=== PATIENT | male | born 1955 | race Caucasian/White ===

== ENCOUNTER 2016-09-06 14:44 | Emergency (ER) | payer MEDICARE ==
[2016-09-06 14:53] VITALS: TEMP 97.3
--- NOTE | 2016-09-06 16:05 | ED ---
General Adult HPI - General Chief complaint: ENT Stated complaint: Throat pain Time Seen by Provider: 09/06/16 15:41 Source: patient, family, RN notes reviewed Mode of arrival: wheelchair Limitations: language barrier, physical limitation - History of Present Illness Initial comments: Is complaining history of present illness this is a 61-year-old male here with his . The patient has a history of throat cancer. He has a device to assist him in speaking PROVOX It gets placed and stays there for 1 year. While cleaning the device he accidentally pulled it out. He has a fresh new one to place. This needs to be done by an ear nose throat specialist. They tried to do it themselves last night starting at 5 PM but was unable to. I contacted Dr. Maki on-call ENT he will see the patient in the emergency room and replace the PROVOX - Related Data Home Medications Medication Instructions Recorded Confirmed Amitriptyline HCl [Elavil] 50 mg PO BID 09/06/16 09/06/16 Buprenorphine HCl/Naloxone HCl 1 film SL QID PRN 09/06/16 09/06/16 [Suboxone 8 mg-2 mg Sl Film] Diazepam [Valium] 10 mg PO TID 09/06/16 09/06/16 Gabapentin [Neurontin] 1,200 mg PO TID 09/06/16 09/06/16 Glimepiride [Amaryl] 4 mg PO DAILY 09/06/16 09/06/16 metFORMIN HCL [Metformin HCl] 1,000 mg PO BID 09/06/16 09/06/16 Allergies Allergy/AdvReac Type Severity Reaction Status Date / Time Iodine and Iodide Containing Allergy Swelling Verified 09/06/16 16:08 Produc Review of Systems ROS Statement: Those systems with pertinent positive or pertinent negative responses have been documented in the HPI. no other complaints at this time other than he accidentally pulled the device out that helps him speak while cleansing the area. his tried to replace the device was unable to. They're sent here for ENT to evaluate and replace the device past medical problems cancer is noted diabetes mellitus,Back surgery orthopedic surgery throat right hip. Family history not respiratory. Patient has ALLERGIES to iodine. ROS Other: All systems not noted in ROS Statement are negative. Past Medical History Past Medical History: Cancer, Diabetes Mellitus Additional Past Medical History / Comment(s): no right hip fence pole 2004accident , wheelchair bound History of Any Multi-Drug Resistant Organisms: None Reported Past Surgical History: Back Surgery, Orthopedic Surgery Additional Past Surgical History / Comment(s): throat, right hip Past Psychological History: No Psychological Hx Reported Smoking Status: Former smoker Past Alcohol Use History: Rare Past Drug Use History: None Reported General Exam - General Exam Comments Initial Comments: vital signs temp 97.3 pulse 98 respiratory rate 16 pulse ox 92 on room air blood pressure 194/105. if on repeat the BP is still elevated the patient will will be given medication to bring it down. patient has tracheostomy hole. And the device in question fits asmall hole in the tracheal ring to allow the patient to speak. It actually got pulled out while he was cleaning the area. He is here for it to be replaced. No other complaints. Limitations: language barrier, physical limitation Course Vital Signs 09/06/16 09/06/16 09/06/16 14:46 16:12 17:00 Temperature 97.3 F L Pulse Rate 98 94 Respiratory 16 18 Rate Blood Pressure 194/105 176/82 150/86 O2 Sat by Pulse 92 L 94 L Oximetry Medical Decision Making - Medical Decision Making Dr. Maki, ENT on-call, came in emergency room and inserted the mechanical voice box. The patient is rated go home. Patient will follow-up with Dr. Mkai Disposition Clinical Impression: Mechanical complication of voice prosthesis Disposition: HOME SELF-CARE Condition: Fair Additional Instructions: follow-up with your family Dr. Carol ROSENTHAL and Dr. Maki Referrals: Rodolfo Barry DO [Primary Care Provider] - 1-2 days Time of Disposition: 17:35
[2016-09-06] MEDS ORDERED: cloNIDine HCL 0.1 MG TAB PO STA (16:16)
[2016-09-06 17:10] VITALS: BP 150/86; PULSE 94; RESP 18
--- NOTE | 2016-09-06 17:44 | P.GSCN ---
History of Present Illness Consult date: 09/06/16 Reason for Consult: TE Prosthesis dislodged and needs replacement Requesting physician: Luis Miguel Foss History of present illness: This is a 61-year-old white male who is status post laryngectomy. 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 This prosthesis has become dislodged and a replacement was attempted by the . After several attempts all last evening they were unable to get this voice prosthesis in place. The emergency room physician was unable to place this voice prosthesis and therefore I was called for insertion of this prosthesis. Review of Systems unablel to obtain as the patient has no voice prosthesis in place and is unable to talk Past Medical History Past Medical History: Cancer, Diabetes Mellitus Additional Past Medical History / Comment(s): no right hip fence pole 2004accident , wheelchair bound History of Any Multi-Drug Resistant Organisms: None Reported Past Surgical History: Back Surgery, Orthopedic Surgery Additional Past Surgical History / Comment(s): throat, right hip Past Psychological History: No Psychological Hx Reported Smoking Status: Former smoker Past Alcohol Use History: Rare Past Drug Use History: None Reported Medications and Allergies Home Medications Medication Instructions Recorded Confirmed Type Amitriptyline HCl [Elavil] 50 mg PO BID 09/06/16 09/06/16 History Buprenorphine HCl/Naloxone HCl 1 film SL QID PRN 09/06/16 09/06/16 History [Suboxone 8 mg-2 mg Sl Film] Diazepam [Valium] 10 mg PO TID 09/06/16 09/06/16 History Gabapentin [Neurontin] 1,200 mg PO TID 09/06/16 09/06/16 History Glimepiride [Amaryl] 4 mg PO DAILY 09/06/16 09/06/16 History metFORMIN HCL [Metformin HCl] 1,000 mg PO BID 09/06/16 09/06/16 History Allergies Allergy/AdvReac Type Severity Reaction Status Date / Time Iodine and Iodide Containing Allergy Swelling Verified 09/06/16 16:08 Produc Surgical - Exam Osteopathic Statement: *. No significant issues noted on an osteopathic structural exam other than those noted in the History and Physical/Consult. Vital Signs Temp Pulse Resp BP Pulse Ox 97.3 F L 98 16 194/105 92 L 09/06/16 14:46 09/06/16 14:46 09/06/16 14:46 09/06/16 14:46 09/06/16 14:46 - General no distress, other (This patient is in a wheelchair status post laryngectomy and neck dissection with a trachea stoma in place.) - Eyes PERRL, normal ocular movement - ENT normal pinna, normal nares - Neck Status post a laryngectomy no masses - Respiratory normal expansion - Integumentary no rash, no growths - Neurologic Wheelchair bound - Musculoskeletal other (In a wheelchair) - Psychiatric oriented to time, oriented to person, other Assessment and Plan Plan: After several attempts at insertion I worked my office and obtained jolting capsules to facilitate the insertion and was able to insert this voice prosthesis. This took over half hour with multiple attempts but the prosthesis was inserted and it was able to talk. Patient tolerated this well. I'm recommending voice prosthesis replaced more frequently than annually which is what they've been doing. This patient is voice prosthesis replacement at least every 3-6 months. They go to the [facility] for their insertion but I told him that I would happy to do the insertion in the office so that I have to travel so far. Time with Patient: Greater than 30
== END 2016-09-06 17:51 | disposition home or self-care (01) ==
LOC: EC 14:44
DX: T85.698A Other mechanical complication of other specified internal prosthetic devices, implants and grafts, initial encounter (principal); E11.9 Type 2 diabetes mellitus without complications; Z91.041 Radiographic dye allergy status; Z87.891 Personal history of nicotine dependence; Z85.819 Personal history of malignant neoplasm of unspecified site of lip, oral cavity, and pharynx; Z79.84 Long term (current) use of oral hypoglycemic drugs; Z79.899 Other long term (current) drug therapy
CPT/HCPCS: 99283

== ENCOUNTER 2016-09-07 20:16 | Inpatient (IN) | payer MEDICARE ==
[2016-09-07] MEDS ORDERED: IV VANCOMYCIN PER PHARMACY 1 EACH MISC MISCELLANE PRN (20:38)
[2016-09-07] MEDS ORDERED: ACETAMINOPHEN IV (For NPO) 1,000 MG in EMPTY BAG 1 BAG IVPB STA (20:41)
[2016-09-07] MEDS ORDERED: PIPERACILLIN-TAZOBACTAM 3.375 GM in DEXTROSE/WATER 1 50ML.BAG IVPB STA (20:42)
[2016-09-07] MEDS: SODIUM CHLORIDE 0.9% 500 ML IV SCH ×2 (21:10→21:11)
[2016-09-07 21:16] LABS: CH 29.6; CHCM 33.2; HCT 42.9 % (39.0-53.0); HDW 2.57; HGB 14.1 gm/dL (13.0-17.5); Immature Gran Flag Moderate; MCH 29.5 pg (25.0-35.0); MCHC 32.9 g/dL (31.0-37.0); MCV 89.6 fL (80.0-100.0); Mean Platelet Volume 7.3; RBC 4.79 m/uL (4.30-5.90); RDW 13.7 % (11.5-15.5); WBC 6.4 k/uL (3.8-10.6); WBC (Perox) 6.03
[2016-09-07 21:20] LABS: INR 1.3 (<1.1); Partial Thromboplastin Time 26.7 sec (22.0-30.0); Prothrombin Time 12.7 sec (9.0-12.0)
[2016-09-07 21:22] LABS: ALT 50 U/L (21-72); AST 33 U/L (17-59); Alkaline Phosphatase 73 U/L (38-126); Anion Gap 13 mmol/L; Blood Urea Nitrogen 13 mg/dL (9-20); Calcium 9.1 mg/dL (8.4-10.2); Carbon Dioxide 29 mmol/L (22-30); Chloride 98 mmol/L (98-107); Glucose 235 mg/dL (74-99); Non-African American GFR(MDRD) >60 (>60 ml/min/1.73 sqM); Potassium 4.5 mmol/L (3.5-5.1); Sodium 140 mmol/L (137-145); Total Bilirubin 0.7 mg/dL (0.2-1.3); Total Protein 7.9 g/dL (6.3-8.2)
--- NOTE | 2016-09-07 21:34 | XR ---
EXAMINATION TYPE: XR chest 1V portable DATE OF EXAM: 09/07/2016 COMPARISON: NONE HISTORY: Hypoxemia TECHNIQUE: Single frontal view of the chest is obtained. FINDINGS: There is some patchy infiltrate at the right lung base. There is elevated left diaphragm a nd linear density. There is no heart failure. IMPRESSION: Right lower lobe pneumonia. Patchy pneumonia and atelectasis at the left lung base. No h eart failure.
[2016-09-07 21:47] LABS: Add Differential Manual Differential
[2016-09-07 21:51] LABS: ABG Base Excess 0.2 mmol/L; ABG HCO3 25 mmol/L (21-25); ABG PCO2 43 mmHg (35-45); ABG PH 7.38 (7.35-7.45); ABG PO2 81 mmHg (83-108); ABG TCO2 26 mmol/L (19-24)
[2016-09-07 21:52] LABS: Creatine Kinase MB 1.3 ng/mL (0.0-2.4)
[2016-09-07 21:53] LABS: Nucleated Red Blood Cells 0 /100 WBC (0-0); Total Cells Counted 200; Troponin I 0.049 ng/mL (0.000-0.034)
[2016-09-07 21:54] LABS: Manual Review Performed
[2016-09-07 21:55] LABS: RBC Morphology Normal
[2016-09-07] MEDS ORDERED: VANCOMYCIN 2,250 MG in SODIUM CHLORIDE 0.9% 500 ML IVPB ONE (22:00)
[2016-09-07] MEDS ORDERED: SODIUM CHLORIDE 0.9% 1,000 ML IV ONE (22:22)
--- NOTE | 2016-09-07 22:29 | ED ---
SOB HPI - General Chief Complaint: Shortness of Breath Stated Complaint: Trachea Issues Time Seen by Provider: 09/07/16 20:21 Source: patient Mode of arrival: EMS Limitations: no limitations - History of Present Illness Initial Comments: This is a 61-year-old male with a history of laryngectomy with a voice valve placed yesterday who presents emergency department for shortness of breath and mental status changes. Per the he is been aspirating most of what he drinks throughout the day. He became very short of breath and is mental status started to decline so she brought him in the emergency department. She states that he was fine up until today. No fevers or chills at home. No vomiting or diarrhea. No abdominal pain. The patient will awake to voice however is unable to speak. No other voiced complaints. - Related Data Home Medications Medication Instructions Recorded Confirmed Amitriptyline HCl [Elavil] 50 mg PO BID 09/06/16 09/07/16 Buprenorphine HCl/Naloxone HCl 1 film SL QID PRN 09/06/16 09/07/16 [Suboxone 8 mg-2 mg Sl Film] Diazepam [Valium] 10 mg PO TID 09/06/16 09/07/16 Gabapentin [Neurontin] 1,200 mg PO TID 09/06/16 09/07/16 Glimepiride [Amaryl] 4 mg PO DAILY 09/06/16 09/07/16 metFORMIN HCL [Metformin HCl] 1,000 mg PO BID 09/06/16 09/07/16 Allergies Allergy/AdvReac Type Severity Reaction Status Date / Time Iodine and Iodide Containing Allergy Swelling Verified 09/07/16 20:26 Produc Review of Systems ROS Statement: Those systems with pertinent positive or pertinent negative responses have been documented in the HPI. ROS Other: All systems not noted in ROS Statement are negative. Past Medical History Past Medical History: Cancer, Diabetes Mellitus Additional Past Medical History / Comment(s): no right hip fence pole 2004accident , wheelchair bound History of Any Multi-Drug Resistant Organisms: None Reported Past Surgical History: Back Surgery, Orthopedic Surgery Additional Past Surgical History / Comment(s): throat, right hip Past Psychological History: No Psychological Hx Reported Smoking Status: Former smoker Past Alcohol Use History: Rare Past Drug Use History: None Reported General Exam - General Exam Comments Initial Comments: Constitutional: Patient is very somnolent but will awaken to voice Appears comfortable Head: Normocephalic atraumatic Eyes: no conjunctival injection No scleral icterus EOMI Neck: No JVD Supple Heart: Regular rate rhythm normal S1-S2 no murmurs Lungs: Clear to auscultation bilaterally No wheezing there are bibasilar rales Abdomen: Soft nondistended nontender Extremities: Non edematous DP pulses intact Radial pulses intact Neuro: She is very somnolent but will awaken to voice. He does attempt to communicate however he cannot because he has the voice valve in place No focal neurologic deficits Psych: Appropriate mood and affect Limitations: no limitations Course Vital Signs 09/07/16 09/07/16 09/07/16 20:19 20:35 20:45 Temperature 104.9 F H Pulse Rate 128 H 126 H 124 H Respiratory 26 H 24 26 H Rate Blood Pressure 131/82 134/80 132/76 O2 Sat by Pulse 75 L 90 L Oximetry 09/07/16 09/07/16 09/07/16 21:00 21:15 21:30 Temperature Pulse Rate 121 H 116 H 111 H Respiratory 24 26 H 24 Rate Blood Pressure 121/80 119/56 116/59 O2 Sat by Pulse 88 L 90 L 95 Oximetry 09/07/16 09/07/16 09/07/16 21:45 22:00 22:15 Temperature 101.5 F H Pulse Rate 112 H 107 H 107 H Respiratory 22 24 22 Rate Blood Pressure 115/62 104/60 97/55 O2 Sat by Pulse 93 L 95 95 Oximetry Medical Decision Making - Medical Decision Making This is a 61-year-old male who presents emergency department for hypoxia and mental status changes. He is found to be in severe sepsis. Blood pressure is been stable in the emergency department since he's got here. He was given 2 L initially and I will give a third. The patient had an ABG done which showed a pO2 of 81 on a trach collar. Due to his borderline hypoxemia I'm going to have him placed in the ICU. Dr. Corral agreed with this. Dr. Dennison accepted the admission. - Lab Data Result diagrams: 09/07/16 21:02 09/07/16 21:02 Lab Results 09/07/16 09/07/16 09/07/16 Range/Units 21:02 21:02 21:02 WBC (3.8-10.6) k/uL RBC (4.30-5.90) m/uL Hgb (13.0-17.5) gm/dL Hct (39.0-53.0) % MCV (80.0-100.0) fL MCH (25.0-35.0) pg MCHC (31.0-37.0) g/dL RDW (11.5-15.5) % Plt Count (150-450) k/uL Neutrophils % (Manual) % Band Neutrophils % % Lymphocytes % (Manual) % Monocytes % (Manual) % Metamyelocytes % % Neutrophils # (Manual) (1.3-7.7) k/uL Lymphocytes # (Manual) (1.0-4.8) k/uL Monocytes # (Manual) (0-1.0) k/uL Nucleated RBCs (0-0) /100 WBC Manual Slide Review RBC Morphology PT 12.7 H (9.0-12.0) sec INR 1.3 (<1.1) APTT 26.7 (22.0-30.0) sec Sample Site ABG pH (7.35-7.45) ABG pCO2 (35-45) mmHg ABG pO2 (83-108) mmHg ABG HCO3 (21-25) mmol/L ABG Total CO2 (19-24) mmol/L ABG O2 Saturation (94-97) % ABG Base Excess mmol/L FiO2 % Sodium 140 (137-145) mmol/L Potassium 4.5 (3.5-5.1) mmol/L Chloride 98 (98-107) mmol/L Carbon Dioxide 29 (22-30) mmol/L Anion Gap 13 mmol/L BUN 13 (9-20) mg/dL Creatinine 1.00 (0.66-1.25) mg/dL Est GFR (MDRD) Af Amer >60 (>60 ml/min/1.73 sqM) Est GFR (MDRD) Non-Af >60 (>60 ml/min/1.73 sqM) Glucose 235 H (74-99) mg/dL Plasma Lactic Acid Srini 2.0 (0.7-2.0) mmol/L Calcium 9.1 (8.4-10.2) mg/dL Total Bilirubin 0.7 (0.2-1.3) mg/dL AST 33 (17-59) U/L ALT 50 (21-72) U/L Alkaline Phosphatase 73 (38-126) U/L Total Creatine Kinase (55-170) U/L CK-MB (CK-2) (0.0-2.4) ng/mL CK-MB (CK-2) Rel Index Troponin I (0.000-0.034) ng/mL Total Protein 7.9 (6.3-8.2) g/dL Albumin 4.5 (3.5-5.0) g/dL 09/07/16 09/07/16 09/07/16 Range/Units 21:02 21:02 21:40 WBC 6.4 (3.8-10.6) k/uL RBC 4.79 (4.30-5.90) m/uL Hgb 14.1 (13.0-17.5) gm/dL Hct 42.9 (39.0-53.0) % MCV 89.6 (80.0-100.0) fL MCH 29.5 (25.0-35.0) pg MCHC 32.9 (31.0-37.0) g/dL RDW 13.7 (11.5-15.5) % Plt Count 198 (150-450) k/uL Neutrophils % (Manual) 47.0 % Band Neutrophils % 27.0 % Lymphocytes % (Manual) 11.5 % Monocytes % (Manual) 12.5 % Metamyelocytes % 2.0 % Neutrophils # (Manual) 4.7 (1.3-7.7) k/uL Lymphocytes # (Manual) 0.7 L (1.0-4.8) k/uL Monocytes # (Manual) 0.8 (0-1.0) k/uL Nucleated RBCs 0 (0-0) /100 WBC Manual Slide Review Performed RBC Morphology Normal PT (9.0-12.0) sec INR (<1.1) APTT (22.0-30.0) sec Sample Site R RADIAL ABG pH 7.38 (7.35-7.45) ABG pCO2 43 (35-45) mmHg ABG pO2 81 L (83-108) mmHg ABG HCO3 25 (21-25) mmol/L ABG Total CO2 26 H (19-24) mmol/L ABG O2 Saturation 96.0 (94-97) % ABG Base Excess 0.2 mmol/L FiO2 100 % Sodium (137-145) mmol/L Potassium (3.5-5.1) mmol/L Chloride (98-107) mmol/L Carbon Dioxide (22-30) mmol/L Anion Gap mmol/L BUN (9-20) mg/dL Creatinine (0.66-1.25) mg/dL Est GFR (MDRD) Af Amer (>60 ml/min/1.73 sqM) Est GFR (MDRD) Non-Af (>60 ml/min/1.73 sqM) Glucose (74-99) mg/dL Plasma Lactic Acid Srini (0.7-2.0) mmol/L Calcium (8.4-10.2) mg/dL Total Bilirubin (0.2-1.3) mg/dL AST (17-59) U/L ALT (21-72) U/L Alkaline Phosphatase (38-126) U/L Total Creatine Kinase 110 (55-170) U/L CK-MB (CK-2) 1.3 (0.0-2.4) ng/mL CK-MB (CK-2) Rel Index 1.2 Troponin I 0.049 H* (0.000-0.034) ng/mL Total Protein (6.3-8.2) g/dL Albumin (3.5-5.0) g/dL Disposition Clinical Impression: HCAP (healthcare-associated pneumonia), Severe sepsis Disposition: ADMITTED IP TO THIS [facility] Condition: Critical Referrals: Rodolfo Barry DO [Primary Care Provider] - 1-2 days
[2016-09-07] MEDS ORDERED: NON-FORMULARY DRUG (Buprenorphine Hcl/Naloxone Hcl [Suboxone 8 Mg-2 Mg Sl Film] 1 FILM) SL PRN (23:17)
[2016-09-07] MEDS: SODIUM CHLORIDE 0.9% 1,000 ML IV SCH (23:24)
[2016-09-07 23:36] LABS: Glucose,Whole Blood 189 mg/dL (75-99)
[2016-09-08] MEDS: HEPARIN SODIUM,PORCINE 5,000 UNIT/ML 1 ML VIAL SQ SCH ×3 (00:31→21:04)
[2016-09-08] MEDS: PANTOPRAZOLE 40 MG/10 ML VIAL IVP SCH ×2 (00:32→08:38)
[2016-09-08] MEDS: HYDROmorphone 1 MG/ML 1 ML SYRINGE IVP PRN ×2 (00:32→09:41)
[2016-09-08 02:00] LABS: Appearance,Urine Clear (Clear); Bilirubin,Urine Negative (Negative); Glucose,Urine (UA) Negative (Negative); Ketones,Urine Trace (Negative); Leukocyte Esterase,Urine Negative (Negative); Mucus,Urine Rare /hpf; Nitrite,Urine Negative (Negative); Particle Count 1254; Protein,Urine 1+ (Negative); RBC,Urine 4 /hpf (0-5); Specific Gravity,Urine 1.018 (1.001-1.035); UA Billing (MACRO vs. MICRO) MICRO; Urobilinogen,Urine <2.0 mg/dL (<2.0); WBC,Urine <1 /hpf (0-5)
[2016-09-08] MEDS ORDERED: NALOXONE 0.4 MG/ML 1 ML VIAL IV PRN (03:13)
[2016-09-08 03:44] LABS: CH 29.2; HCT 34.8 % (39.0-53.0); HDW 2.69; HGB 11.6 gm/dL (13.0-17.5); Immature Gran Flag Slight; MCH 29.8 pg (25.0-35.0); MCHC 33.5 g/dL (31.0-37.0); MCV 89.1 fL (80.0-100.0); RDW 13.6 % (11.5-15.5)
[2016-09-08 03:58] LABS: Anion Gap 11 mmol/L; Blood Urea Nitrogen 12 mg/dL (9-20); Calcium 7.6 mg/dL (8.4-10.2); Carbon Dioxide 24 mmol/L (22-30); Chloride 107 mmol/L (98-107); Glucose 143 mg/dL (74-99); Magnesium 1.5 mg/dL (1.6-2.3); Non-African American GFR(MDRD) >60 (>60 ml/min/1.73 sqM); Phosphorous 4.2 mg/dL (2.5-4.5); Potassium 4.1 mmol/L (3.5-5.1); Sodium 142 mmol/L (137-145)
[2016-09-08 04:07] LABS: Creatine Kinase MB 2.1 ng/mL (0.0-2.4)
[2016-09-08 04:11] LABS: Troponin I 0.036 ng/mL (0.000-0.034)
[2016-09-08] MEDS ORDERED: Magnesium Replacement Protocol 1 EACH MISC MISCELLANE PRN (04:22)
[2016-09-08 05:17] LABS: Add Differential Manual Differential
[2016-09-08 05:19] LABS: Manual Review Performed; Nucleated Red Blood Cells 0 /100 WBC (0-0); Total Cells Counted 100
[2016-09-08] MEDS: MAGNESIUM SULFATE-D5W PMX 1 GM in DEXTROSE/WATER 1 100ML.BAG IVPB SCH ×2 (05:49→06:57)
--- NOTE | 2016-09-08 07:26 | XR ---
EXAMINATION TYPE: XR chest 1V DATE OF EXAM: 09/08/2016 CLINICAL HISTORY: Difficulty breathing and pneumonia progress study. TECHNIQUE: 2 AP portable upright views of the chest are obtained. COMPARISON: Chest x-ray from one day earlier FINDINGS: There is persistent patchy right medial basilar opacity. There is elevated left hemidiaphr agm with developing left basilar opacity. Upper lungs remain clear without pneumothorax. Cardiac silh ouette size is stable and upper limits of normal. Indeterminant favor subacute or chronic fracture di stal left clavicle is redemonstrated. Numerous surgical clips overlie the bilateral neck. IMPRESSION: Persistent patchy right medial basilar atelectasis and/or infiltrate. New small left pleu ral effusion and left basilar infiltrate and/or atelectasis noted.
[2016-09-08] MEDS ORDERED: INSULIN LISPRO (humaLOG) 300 UNIT/3 ML VIAL SQ SCH (07:30)
[2016-09-08 07:48] LABS: Glucose,Whole Blood 162 mg/dL (75-99)
[2016-09-08] MEDS: GABAPENTIN 400 MG CAP PO SCH ×3 (08:37→20:24)
[2016-09-08] MEDS: AMITRIPTYLINE HCL 50 MG TAB PO SCH ×2 (08:37→20:25)
[2016-09-08] MEDS: GLIMEPIRIDE 4 MG TAB PO SCH (08:37)
[2016-09-08] MEDS: metFORMIN 500 MG TAB PO SCH ×2 (08:38→20:25)
[2016-09-08] MEDS: LEVALBUTEROL NEB (CONC) 1.25 MG/0.5 ML AMP INHALATION SCH ×5 (09:03→19:27)
[2016-09-08] MEDS: IPRATROPIUM 0.5 MG/2.5 ML NEBU INHALATION SCH ×5 (09:03→19:27)
[2016-09-08 09:13] LABS: Creatine Kinase MB 2.4 ng/mL (0.0-2.4); Troponin I 0.022 ng/mL (0.000-0.034)
[2016-09-08] MEDS ORDERED: DEXAMETHASONE SOD PHOSPHATE 10 MG/ML 1 ML VIAL IV STA (09:38)
[2016-09-08] MEDS ORDERED: PROPOFOL 50 ML IV ONE (09:47)
[2016-09-08] MEDS ORDERED: SUCCINYLCHOLINE CHLORIDE 100 MG/5 ML SYR IV ONE (09:51)
[2016-09-08] MEDS ORDERED: CISATRACURIUM 2 MG/ML 5 ML VIAL IV ONE ×2 (09:52→09:56)
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
--- NOTE | 2016-09-08 10:22 | XR ---
EXAMINATION TYPE: XR chest 1V portable DATE OF EXAM: 09/08/2016 CLINICAL HISTORY: Difficulty breathing progress study. TECHNIQUE: 2 AP portable frontal views of the chest are obtained. COMPARISON: Chest x-ray from earlier today FINDINGS: There is new flexible tracheostomy tube extending to the carinal level. There is chronic p arenchymal change with persistent right medial basilar and patchy left basilar opacities. No large pl eural effusion or pneumothorax is seen bilaterally. Elevated left hemidiaphragm is redemonstrated. Ca rdiac silhouette size is within normal limits. Old fracture deformity distal left clavicle is partial ly imaged. Numerous surgical clips overlie the bilateral neck. IMPRESSION: New flexible tracheostomy tube terminates at jeramie. There is persistent patchy bibasilar infiltrate and/or atelectasis.
[2016-09-08] MEDS ORDERED: HYDROmorphone 1 MG/ML 1 ML SYRINGE IVP PRN (10:26)
--- NOTE | 2016-09-08 10:56 | XR ---
EXAMINATION TYPE: XR chest 1V portable DATE OF EXAM: 09/08/2016 CLINICAL HISTORY: Tube repositioned progress study. TECHNIQUE: Single AP portable upright view of the chest is obtained. COMPARISON: Chest x-ray from earlier today FINDINGS: Flexible tracheostomy tube has been pulled back approximately 1 to 2 cm. There is chronic parenchymal change with elevated left hemidiaphragm and patchy bibasilar atelectasis and/or infiltrat e redemonstrated. Cardiac silhouette size is stable and within normal limits. Fracture deformity dist al left clavicle is redemonstrated. IMPRESSION: Interval slight retraction of flexible tracheostomy tube otherwise no significant interva l change.
[2016-09-08 11:06] VITALS: BMI 33.5
[2016-09-08] MEDS: PIPERACILLIN-TAZOBACTAM 3.375 GM in DEXTROSE/WATER 1 50ML.BAG IVPB SCH ×3 (11:15→23:39)
[2016-09-08] MEDS: VANCOMYCIN 1,500 MG in SODIUM CHLORIDE 0.9% 250 ML IVPB SCH ×2 (11:20→23:05)
[2016-09-08] MEDS: CHLORHEXIDINE GLUCONATE 15 ML CUP MUCOUS MEM SCH ×2 (11:22→22:11)
[2016-09-08] MEDS: PROPOFOL 500 MG in EMPTY BAG 1 BAG IV SCH ×5 (11:40→22:11)
[2016-09-08 11:44] LABS: Hemoglobin A1C 6.7 % (4.2-6.1)
[2016-09-08 12:05] LABS: ABG HCO3 24 mmol/L (21-25); ABG PCO2 56 mmHg (35-45); ABG PH 7.26 (7.35-7.45); ABG PO2 208 mmHg (83-108); ABG TCO2 26 mmol/L (19-24)
--- NOTE | 2016-09-08 12:46 | XR ---
EXAMINATION TYPE: XR chest 1V portable DATE OF EXAM: 09/08/2016 CLINICAL HISTORY: NG tube placement TECHNIQUE: Single AP portable semiupright view of the chest is obtained. COMPARISON: Chest x-ray from earlier today FINDINGS: There is new nasogastric tube projecting below left hemidiaphragm. Flexible tracheostomy tube is stable. There is chronic parenchymal change with elevated left hemidiap hragm and patchy left greater than right bibasilar atelectasis and/or infiltrate redemonstrated. Card iac silhouette size is stable and upper limits of normal. Age-indeterminate fracture distal left clav icle is redemonstrated. Numerous surgical clips bilateral neck are redemonstrated. IMPRESSION: New nasogastric tube is satisfactory in position.
[2016-09-08] MEDS ORDERED: LIDOCAINE 2% INJ 20 MG/ML SQ ONE (13:21)
--- NOTE | 2016-09-08 13:56 | XR ---
EXAMINATION TYPE: XR chest 1V confirm line [facility] DATE OF EXAM: 09/08/2016 CLINICAL HISTORY: Central line placement TECHNIQUE: Single AP portable semiupright view of the chest is obtained. COMPARISON: Chest x-ray from earlier today FINDINGS: There is new right-sided PICC line with tip at cavoatrial junction. Flexible endotracheal and nasogastric tubes are stable in appearance. There is persistent left basilar and right medial bas ilar opacities. There is stable mild cardiomegaly. There is chronic parenchymal change without pneumo thorax seen bilaterally. Surgical clips bilateral neck are partially imaged. Age-indeterminate fractu re deformity distal left clavicle is partially imaged. IMPRESSION: New right-sided PICC line with tip at cavoatrial junction. Other findings stable. There i s chronic parenchymal change and cardiomegaly with bibasilar atelectasis and/or infiltrate and possib le small left pleural effusion.
--- NOTE | 2016-09-08 14:24 | IR ---
EXAMINATION TYPE: IR cvc insert >=5 years DATE OF EXAM: 09/08/2016 COMPARISON: NONE HISTORY: Intravenous access required for total parenteral nutrition FINDINGS: Maximal barrier technique was utilized. The skin overlying the right basilic vein was loca lized with ultrasound and noted to be compressible and patent by ultrasound. An ultrasound image was obtained and submitted on patient's chart. Sterile technique utilized with the ultrasound machine. T he skin overlying was prepped and draped and Lidocaine used for local anesthesia. A skin leah was ma de with a scalpel. Access was gained to the vein under direct ultrasound guidance with a 21-gauge ne edle and a 0.018 inch wire was advanced. Access site was dilated with a peel-away sheath and the cat heter tailored to length. Catheter advanced centrally and a post procedure chest x-ray verified plac ement within the right atrium. Catheter was fixed to the skin with suture and a sterile dressing gracie diana. Hemostasis achieved and the catheter was aspirated and flushed with sterile saline. The patien t remained in stable condition. IMPRESSION: STATUS POST ULTRASOUND GUIDED PICC LINE PLACEMENT, READY FOR USE. THIS PROCEDURE WAS PER FORMED BY THE UNDERSIGNED.
[2016-09-08] MEDS: INSULIN LISPRO (humaLOG) 300 UNIT/3 ML VIAL SQ SCH ×3 (15:28→23:42)
[2016-09-08] MEDS: methylPREDNISolone SOD SUCCI 125 MG/2 ML VIAL IV SCH ×3 (15:54→23:40)
[2016-09-08] MEDS ORDERED: NOREPINEPHRIN 16 MG-0.9%NS PMX 16 MG/250 ML ML IV SCH (18:45)
[2016-09-08 19:00] LABS: Glucose,Whole Blood 223 mg/dL (75-99)
--- NOTE | 2016-09-08 20:19 | PCN ---
DATE OF PROCEDURE: 09/08/2016 PREOPERATIVE DIAGNOSIS: Acute respiratory failure. POSTOPERATIVE DIAGNOSIS: Acute respiratory failure. DESCRIPTION OF PROCEDURE: The patient was seen in the intensive care unit. The patient was significant respiratory distress. The patient was actively bronchospastic and wheezy using accessory muscles of breathing and severe respiratory distress. At that point, he was sedated with Diprivan and Diprivan was initiated. Following that, the patient was given a dose of Nimbex 10 mg for complete calluses. Immediately a Bivona silicone tracheostomy tube #8 was inserted. This is an adjustable tracheostomy tube. It was inserted successfully through the tracheostomy stoma without any major difficulties. The obturator was removed and the tube was positioned and the patient was ventilated using an Ambu bag at the bedside. Breath sounds were equal and bilateral. The tracheostomy tube was secured in place. Pulse ox remained above 90% throughout the procedure. The patient was kept sedated with Diprivan. A chest x-ray was done and the position of the tube was confirmed to be around 1 cm above the jeramie and further adjustments were made and the tube was pulled up by another centimeter. The tube was currently secured in place. The patient is being mechanically ventilated and on assist-control mode of ventilator. Blood gases are to follow. No bedside complications or bleeding.
[2016-09-08] MEDS: SODIUM CHLORIDE 0.9% 1,000 ML IV SCH (21:04)
[2016-09-08 23:36] LABS: Glucose,Whole Blood 280 mg/dL (75-99)
[2016-09-09] MEDS: PROPOFOL 500 MG in EMPTY BAG 1 BAG IV SCH ×4 (00:10→07:18)
[2016-09-09 04:49] LABS: Basophils % (A) 0 %; CH 28.8; CHCM 31.3; Eosinophils % (A) 0 %; HCT 35.3 % (39.0-53.0); HDW 2.83; HGB 11.5 gm/dL (13.0-17.5); Hypochromasia Slight; Luc # (Auto) 0.09; Luc % (Auto) 2; Lymphocytes # (A) 0.6 k/uL (1.0-4.8); Lymphocytes % (A) 16 %; MCH 30.1 pg (25.0-35.0); MCHC 32.6 g/dL (31.0-37.0); MCV 92.3 fL (80.0-100.0); Mean Platelet Volume 7.4; Monocytes # (A) 0.3 k/uL (0-1.0); Monocytes % (A) 8 %; Neutrophils # (A) 2.8 k/uL (1.3-7.7); Neutrophils % (A) 74 %; RBC 3.83 m/uL (4.30-5.90); RDW 13.2 % (11.5-15.5); WBC 3.8 k/uL (3.8-10.6); WBC (Perox) 4.05
[2016-09-09 04:55] LABS: Anion Gap 11 mmol/L; Blood Urea Nitrogen 13 mg/dL (9-20); Calcium 7.5 mg/dL (8.4-10.2); Carbon Dioxide 18 mmol/L (22-30); Chloride 110 mmol/L (98-107); Glucose 294 mg/dL (74-99); Magnesium 2.2 mg/dL (1.6-2.3); Non-African American GFR(MDRD) >60 (>60 ml/min/1.73 sqM); Phosphorous 2.1 mg/dL (2.5-4.5); Potassium 4.3 mmol/L (3.5-5.1); Sodium 139 mmol/L (137-145)
[2016-09-09 05:27] LABS: Glucose,Whole Blood 311 mg/dL (75-99)
[2016-09-09] MEDS ORDERED: Phosphorus Replacement Protoco 1 EACH MISC MISCELLANE PRN (05:39)
[2016-09-09] MEDS ORDERED: SODIUM PHOSPHATE 10 MMOL in SODIUM CHLORIDE 0.9% 250 ML IVPB ONE (05:39)
[2016-09-09] MEDS ORDERED: INSULIN REGULAR 100 UNIT in SODIUM CHLORIDE 0.9% 100 ML IV SCH (05:45)
[2016-09-09 05:47] LABS: ABG HCO3 22 mmol/L (21-25); ABG PCO2 47 mmHg (35-45); ABG PH 7.29 (7.35-7.45); ABG PO2 84 mmHg (83-108); ABG TCO2 23 mmol/L (19-24)
[2016-09-09] MEDS: methylPREDNISolone SOD SUCCI 125 MG/2 ML VIAL IV SCH ×2 (06:22→11:27)
[2016-09-09 06:52] LABS: Glucose,Whole Blood 245 mg/dL (75-99)
--- NOTE | 2016-09-09 06:55 | XR ---
EXAMINATION TYPE: XR chest 1V portable DATE OF EXAM: 09/09/2016 HISTORY: Tube placement. REFERENCE: Previous study dated 09/08/2016. FINDINGS: A tracheostomy tube is in place. Its tip overlies the tracheal air column in this single fr ontal projection. An NG tube is in place. Its tip is in the stomach. A right basilic PICC line is in place. Its tip is at the cavoatrial junction. Multiple surgical clips project over the lower neck. There is dense consolidation at the left lung base. There is worsening right basilar consolidation. T here is a left-sided effusion and probably a smaller right-sided effusion. The heart is not enlarged. IMPRESSION: 1. BIBASILAR AIRSPACE DISEASE. 2. SMALL, BILATERAL EFFUSIONS GREATER ON THE LEFT THAN THE RIGHT.
[2016-09-09 07:19] LABS: Glucose,Whole Blood 252 mg/dL (75-99)
[2016-09-09] MEDS: LEVALBUTEROL NEB (CONC) 1.25 MG/0.5 ML AMP INHALATION SCH ×2 (07:46→11:30)
[2016-09-09] MEDS: IPRATROPIUM 0.5 MG/2.5 ML NEBU INHALATION SCH ×2 (07:46→11:30)
[2016-09-09 08:03] LABS: Glucose,Whole Blood 240 mg/dL (75-99)
[2016-09-09 08:45] LABS: Hemoglobin A1C 6.7 % (4.2-6.1)
[2016-09-09 09:03] LABS: Glucose,Whole Blood 244 mg/dL (75-99)
[2016-09-09 10:08] LABS: Glucose,Whole Blood 213 mg/dL (75-99)
[2016-09-09] MEDS: PIPERACILLIN-TAZOBACTAM 3.375 GM in DEXTROSE/WATER 1 50ML.BAG IVPB SCH (10:49)
[2016-09-09] MEDS: AMITRIPTYLINE HCL 50 MG TAB PO SCH (10:49)
[2016-09-09] MEDS: GABAPENTIN 400 MG CAP PO SCH (10:49)
[2016-09-09] MEDS: CHLORHEXIDINE GLUCONATE 15 ML CUP MUCOUS MEM SCH (10:49)
[2016-09-09] MEDS: PANTOPRAZOLE 40 MG/10 ML VIAL IVP SCH (10:50)
[2016-09-09] MEDS: HEPARIN SODIUM,PORCINE 5,000 UNIT/ML 1 ML VIAL SQ SCH (10:50)
[2016-09-09] MEDS: metFORMIN 500 MG TAB PO SCH (10:50)
[2016-09-09] MEDS: GLIMEPIRIDE 4 MG TAB PO SCH (10:50)
[2016-09-09 10:57] LABS: Glucose,Whole Blood 225 mg/dL (75-99)
[2016-09-09] MEDS: VANCOMYCIN 1,500 MG in SODIUM CHLORIDE 0.9% 250 ML IVPB SCH (11:12)
[2016-09-09] MEDS ORDERED: ONDANSETRON 4 MG/2 ML VIAL IVP PRN (12:16)
[2016-09-09] MEDS ORDERED: SCOPOLAMINE 1.5MG/72HR PATCH TRANSDERM PRN (12:16)
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
[2016-09-09] MEDS: MORPHINE SULFATE 4 MG/ML SYRINGE IV PRN ×7 (13:05→22:37)
[2016-09-09] MEDS: MORPHINE SULFATE (100 MG/2 ML) 100 MG in SODIUM CHLORIDE 0.9% 100 ML IV SCH ×2 (13:11→20:52)
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
[2016-09-09] MEDS: LORazepam 2 MG/ML SYRINGE IV PRN (21:01)
[2016-09-09 21:09] VITALS: BP 179/98; RESP 15; TEMP 97.8
[2016-09-09] MEDS ORDERED: VANCOMYCIN TROUGH DUE 1 EACH MISC MISCELLANE ONE (22:00)
[2016-09-10 00:48] VITALS: PULSE 111
[2016-09-10] MEDS: MORPHINE SULFATE (100 MG/2 ML) 100 MG in SODIUM CHLORIDE 0.9% 100 ML IV SCH ×2 (02:28→08:29)
[2016-09-10] MEDS: LORazepam 2 MG/ML SYRINGE IV PRN (11:30)
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
== END 2016-09-10 18:15 | disposition hospice, home (50) | DRG 871 ==
LOC: EC 20:16 → 6ICU 22:30 → 5ONC 09-09 22:34
PROVIDERS: ADMIT Hospitalist; ATTEND Hospitalist
PROC: 0B21XFZ Change Tracheostomy Device in Trachea, External Approach (ICD-10-PCS; principal; 2016-09-08 13:06)
PROC: 5A1945Z Respiratory Ventilation, 24-96 Consecutive Hours (ICD-10-PCS; principal; 2016-09-08 13:06)
PROC: B244ZZZ Ultrasonography of Right Heart (ICD-10-PCS; 2016-09-08 13:06)
PROC: 02H633Z Insertion of Infusion Device into Right Atrium, Percutaneous Approach (ICD-10-PCS; 2016-09-08 13:06)
DX: A41.9 Sepsis, unspecified organism (principal); G93.41 Metabolic encephalopathy; J96.01 Acute respiratory failure with hypoxia; J69.0 Pneumonitis due to inhalation of food and vomit; E87.2 Acidosis; Z93.0 Tracheostomy status; J44.1 Chronic obstructive pulmonary disease with (acute) exacerbation; J98.11 Atelectasis; E83.42 Hypomagnesemia; E11.9 Type 2 diabetes mellitus without complications; E83.51 Hypocalcemia; K40.90 Unilateral inguinal hernia, without obstruction or gangrene, not specified as recurrent; K43.9 Ventral hernia without obstruction or gangrene; R65.20 Severe sepsis without septic shock; Y95 Nosocomial condition; Z51.5 Encounter for palliative care; Z66 Do not resuscitate; Z74.01 Bed confinement status; Z79.899 Other long term (current) drug therapy; Z85.21 Personal history of malignant neoplasm of larynx; Z87.891 Personal history of nicotine dependence; Z90.02 Acquired absence of larynx; Z99.3 Dependence on wheelchair
CPT/HCPCS: 36415; 36569; 36600; 71010; 76937; 77001; 80048; 80053; 81001; 82550; 82553; 82805; 83036; 83605; 83735; 84100; 84484; 85025; 85610; 85730; 87040; 87070; 87077; 87086; 87186; 87205; 87502; 93005; 94002; 94003; 94640; 96365; 96366; 96367; 99285